=== PATIENT | male | born 1970 | race Caucasian/White ===

== ENCOUNTER 2021-01-07 14:30 | Outpatient (CLI) | payer BC, SELFPAY ==
--- NOTE | ~2021-01-07 | XR_ITS ---
XR hand RT min 3V 01/07/2021 14:46 Indication: Right hand pain Procedure: 3 views right hand Comparison: No prior studies for comparison. Findings: There is mild polyarticular osteoarthritis. There is normal mineralization. No acute fractu re or traumatic malalignment. No significant soft tissue abnormality. No foreign bodies. Impression: 1: Mild polyarticular osteoarthritis of the right hand. Reviewed, dictated and finalized at location A. SERVICES COORDINATOR Impression: 1: Mild polyarticular osteoarthritis of the right hand.
== END 2021-01-07 14:31 | disposition home or self-care (01) ==
LOC: ANHIMG 14:33
PROVIDERS: PCP Physician Assistant; Visit Provider Physician Assistant
DX: M19.041 Primary osteoarthritis, right hand (principal)
CPT/HCPCS: 73130

== ENCOUNTER 2021-07-23 08:06 | Outpatient (CLI) | payer BC, SELFPAY ==
--- NOTE | 2021-07-23 10:49 | WPDPFTINT ---
PFT Procedure Performed PFT Procedure Performed Spirometry with Pre/Post Bronchodilator Plethysmography (Lung Vol) Diffusing Cap (DLCO) Flow Vol Loop PFT Interpretation This is a pulmonary function test with pre and post-bronchodilator spirometry, plethysmography and diffusing capacity. The test was performed and results interpreted in accordance with the 2019 and 2005 ATS/ERS Task Force guidelines respectively using the Global Lung Function Initiative-2012 reference equations. Patient demonstrated good effort and cooperation. Reproducibility criteria were met. The quality of the pre bronchodilator spirometry maneuver was Grade A and post bronchodilator spirometry maneuver was Grade A. Findings: Spirometry: The contour of the inspiratory and expiratory flow tracing are normal. The pre bronchodilator FVC is 3.48 L, 80% predicted. The pre bronchodilator FEV1 is 2.81 L, 81% predicted. The FEV1: FVC ratio is 81%. The post bronchodilator FVC is 3.63 L, representing a 4% increase. The post bronchodilator FEV1 is 3.02 L, representing an 8% increase. Plethysmography: The total lung capacity is 4.76 L, 77% predicted. The functional residual capacity is 2.42 L, 78% predicted. The residual volume is 1.29 L, 71% predicted. Diffusing capacity: The absolute diffusion capacity is 23.4, 81% predicted. The diffusing capacity corrected for alveolar volume is 5.21, 109% predicted. Impression: The spirometry is normal without evidence of an obstructive abnormality. There is no significant improvement after inhaling a single dose of albuterol. The lung volumes are normal. The diffusing capacity is normal. There are no prior studies for comparison
== END 2021-07-23 08:07 | disposition home or self-care (01) ==
PROVIDERS: PCP Internal Medicine; Visit Provider Physician Assistant
DX: R06.02 Shortness of breath (principal); Z87.09 Personal history of other diseases of the respiratory system
CPT/HCPCS: 94060; 94726; 94729